=== PATIENT | male | born 1965 | race Caucasian/White ===

== ENCOUNTER 2019-07-23 09:46 | Emergency (ER) | payer BC ==
[~2019-07-23] VITALS: Ht 177.8 cm; Wt 100.2 kg
[2019-07-23 09:50] VITALS: Ht 177.8 cm; Wt 100.2 kg
[2019-07-23 10:13] VITALS: BP 164/92
== END 2019-07-23 10:13 | disposition home or self-care (01) ==
LOC: ED 09:46
DX: M10.9 Gout, unspecified (principal)
CPT/HCPCS: J1885; J7512

== ENCOUNTER 2021-01-11 10:39 | Emergency (ER) | payer BC ==
[~2021-01-11] VITALS: Ht 177.8 cm; Wt 101.6 kg
[2021-01-11 10:52] VITALS: Ht 177.8 cm; Wt 101.6 kg
[2021-01-11] MEDS ORDERED: PREDNISONE20 MG PO (12:26)
[2021-01-11] MEDS ORDERED: KEF500 PO (12:26)
[2021-01-11 12:45] VITALS: BP 132/80
== END 2021-01-11 12:45 | disposition home or self-care (01) ==
LOC: ED 10:39
DX: L30.8 Other specified dermatitis (principal)
CPT/HCPCS: J0171; J0690; J2930